=== PATIENT | female | born 1960 | race Caucasian/White ===

== ENCOUNTER 2017-05-11 11:29 | Emergency (ER) | payer SELFPAY ==
[2017-05-11] MEDS ORDERED: NAPROXEN 250 MG TABLET PO ONE (11:47)
--- NOTE | 2017-05-11 11:48 | ER Document Report ---
ED Medical Screen (RME) - General Chief Complaint: Knee Pain Stated Complaint: FELL IN SHOWER Time Seen by Provider: 05/11/17 11:46 Mode of Arrival: Wheelchair Information source: Patient TRAVEL OUTSIDE OF THE U.S. IN LAST 30 DAYS: No - HPI Patient complains to provider of: fall Onset: This morning - pt. fell in the shower earlier this am -- c/o bilateral knee and L shoulder pain - Related Data Allergies/Adverse Reactions: lisinopril Adverse Reaction (Verified 05/11/17 11:34) Past Medical History - Social History Chew tobacco use (# tins/day): No Frequency of alcohol use: None Drug Abuse: None - Past Medical History Cardiac Medical History: Reports: Hx Congestive Heart Failure, Hx Hypertension Endocrine Medical History: Reports: Hx Diabetes Mellitus Type 2 Renal/ Medical History: Denies: Hx Peritoneal Dialysis Past Surgical History: Reports: Hx Cardiac Surgery, Hx Section, Hx Cholecystectomy, Hx Orthopedic Surgery Physical Exam - Vital signs Vitals: Temp Pulse Resp BP Pulse Ox 98.5 F 104 H 18 162/85 H 96 05/11/17 11:31 05/11/17 11:31 05/11/17 11:31 05/11/17 11:31 05/11/17 11:31 Course - Vital Signs Vital signs: Temp Pulse Resp BP Pulse Ox 98.5 F 104 H 18 162/85 H 96 05/11/17 11:31 05/11/17 11:31 05/11/17 11:31 05/11/17 11:31 05/11/17 11:31
--- NOTE | 2017-05-11 12:37 | ER Document Report ---
ED Fall - General Chief Complaint: Knee Pain Stated Complaint: FELL IN SHOWER Time Seen by Provider: 05/11/17 11:46 Mode of Arrival: Wheelchair Information source: Patient Notes: 56-year-old female presents to ED for complaint and bilateral knees chronic that she has been being treated in [place] for Percocet for. She states she fell this morning in the shower and now has increased pain in both knees and in her left shoulder. She states she has moved to [place] now but has [place] Medicaid. 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 TRAVEL OUTSIDE OF THE U.S. IN LAST 30 DAYS: No - HPI Occurred: This morning Where: Home, Indoors Context: Tripped Associated symptoms: None Location of injury/pain: Knee - Bilateral knees which is chronic, Shoulder Quality of pain: Burning Severity: Severe Pain Level: 5 - Related data Allergies/Adverse Reactions: lisinopril Adverse Reaction (Verified 05/11/17 11:34) Past Medical History - General Information source: Patient - Social History Smoking Status: Current Every Day Smoker Cigarette use (# per day): Yes - 3 cigarettes a day Chew tobacco use (# tins/day): No Smoking Education Provided: Yes - Less than 2 minutes Frequency of alcohol use: None Drug Abuse: None Lives with: Family - Lives with her grown son who is a marine Family History: Other - She was not raised with her biological family and does not know anything about them. Patient has suicidal ideation: No Patient has homicidal ideation: No - Past Medical History Cardiac Medical History: Reports: Hx Congestive Heart Failure, Hx Hypertension Pulmonary Medical History: Reports: Hx Asthma EENT Medical History: Reports: None Neurological Medical History: Reports: None Endocrine Medical History: Reports: Hx Diabetes Mellitus Type 2 Renal/ Medical History: Reports: None Malignancy Medical History: Reports: None GI Medical History: Reports: None Musculoskeltal Medical History: Reports Hx Arthritis, Reports Hx Musculoskeletal Deformity, Reports Hx Musculoskeletal Trauma Skin Medical History: Reports None Psychiatric Medical History: Reports: None Traumatic Medical History: Reports: Hx Fractures Infectious Medical History: Reports: None Past Surgical History: Reports: Hx Section, Hx Cholecystectomy, Hx Orthopedic Surgery Review of Systems - Review of Systems Constitutional: No symptoms reported EENT: No symptoms reported Cardiovascular: No symptoms reported Respiratory: No symptoms reported Gastrointestinal: No symptoms reported Genitourinary: No symptoms reported Female Genitourinary: No symptoms reported Musculoskeletal: Joint pain - Bilateral knees and left shoulder Skin: No symptoms reported Hematologic/Lymphatic: No symptoms reported Neurological/Psychological: No symptoms reported -: Yes All other systems reviewed and negative Physical Exam - Vital signs Vitals: Temp Pulse Resp BP Pulse Ox 98.5 F 104 H 18 162/85 H 96 05/11/17 11:31 05/11/17 11:31 05/11/17 11:31 05/11/17 11:31 05/11/17 11:31 Interpretation: Normal - General General appearance: Appears well, Alert - HEENT Head: Normocephalic, Atraumatic Eyes: Normal Pupils: PERRL - Respiratory Respiratory status: No respiratory distress Chest status: Nontender Breath sounds: Normal Chest palpation: Normal - Cardiovascular Rhythm: Regular Heart sounds: Normal auscultation Murmur: No - Abdominal Inspection: Normal Distension: No distension Bowel sounds: Normal Tenderness: Nontender Organomegaly: No organomegaly - Back Back: Normal, Nontender - Extremities General upper extremity: Normal inspection, Normal color, Normal temperature General lower extremity: Normal inspection, Normal color, Normal ROM, Normal temperature. No: Aby's sign Shoulder: Tender, Limited ROM - Due to pain. No: Abrasion, Deformity, Dislocation, Ecchymosis, Instability, Laceration Knee: Tender, Pain with ROM, Patellar tendon intact - Neurological Neuro grossly intact: Yes Cognition: Normal Orientation: AAOx4 Ioana Coma Scale Eye Opening: Spontaneous Ioana Coma Scale Verbal: Oriented [place] Coma Scale Motor: Obeys Commands [place] Coma Scale Total: 15 Speech: Normal Motor strength normal: LUE, RUE, LLE, RLE Sensory: Normal - Psychological Associated symptoms: Normal affect, Normal mood - Skin Skin Temperature: Warm Skin Moisture: Dry Skin Color: Normal Course - Re-evaluation Re-evalutation: 05/11/17 14:23 Discussed x-rays with patient. Also discussed the hospital policy on chronic pain. Patient states she will be getting her a physician within a week. Patient was treated with a sling for her shoulder naproxen for her pain and discharged home with a prescription for 5 Percocet 11/15/2024 and told that she needs to get a primary doctor for any other pain medication. Patient was also instructed she needs to follow-up for her elevated blood pressure and be sure she is taken her medications as prescribed. - Vital Signs Vital signs: Temp Pulse Resp BP Pulse Ox 98.3 F 96 18 151/106 H 98 05/11/17 13:26 05/11/17 13:26 05/11/17 13:29 05/11/17 13:26 05/11/17 13:26 - Diagnostic Test Radiology reviewed: Image reviewed, Reports reviewed Discharge - Discharge Clinical Impression: Chronic pain of both knees Fall Qualifiers: Encounter type: initial encounter Qualified Code(s): W19.XXXA - Unspecified fall, initial encounter Left shoulder pain Qualifiers: Chronicity: acute Qualified Code(s): M25.512 - Pain in left shoulder Bilateral knee pain Qualifiers: Chronicity: chronic Qualified Code(s): M25.561 - Pain in right knee Condition: Stable Disposition: HOME, SELF-CARE Instructions: Family Physicians / Practices, Knee Exercise Program ([facility]), Exercise Program for the Shoulder ([facility]) Additional Instructions: CONTUSION: Your injury has resulted in a contusion -- a crushing of the deep tissues. No injury to important structures was detected during the physician's exam. Contusions vary in the amount of pain they cause, and in the length of time required for healing. Typically, the area will become bruised, and will remain painful to touch for two or three weeks. However, most patients are back to working and playing within a few days. After the initial period of rest and cold-packs, your symptoms (together with the doctor's recommendations) will determine how rapidly you can get back to full activity. Usually this means "do what feels okay, but don't do things that hurt." If re-examination was recommended, it's important to follow up as instructed. Call the doctor or return any time if pain increases, if swelling becomes severe, if you develop numbness or weakness in an injured extremity, or if any other alarming symptoms occur. Shoulder Injury You have injured your shoulder. This usually results from stretching or tearing of the tendons during trauma. Time and protection are required in order to heal properly. Many injuries are quite disabling, and should be taken seriously. Initial treatment includes cold packs and a sling to rest the shoulder. The physician has assessed the seriousness of your injury, and has outlined a treatment plan. Understand that this treatment may change, depending on how you progress. If a re-examination was recommended, it is important that you follow up as instructed. Some shoulder injuries (such as partial tear of the rotator cuff) are only suspected after you've failed to improve. Call us if there's severe pain, numbness, or loss of function. Chronic Pain Control Stress, inactivity, and depression make pain more severe regardless of the cause of the pain. Stress and poor physical condition can cause pain such as headaches and backache. Relaxation: Rest in a quiet place with your eyes closed for 20 minutes twice daily. Concentrate on a pleasant image, or simply "feel" your breathing. Clear your mind. Stress management: Deal with your "stressors." Either take action, or eliminate the stressor from your life. Don't let things hang over you. Accept those things you can't change. Nutrition: Eat small, balanced meals -- don't skip, don't overeat. Meals should be high-carbohydrate, low-sugar, low-fat. Exercise: Exercise helps painful conditions and eases stress. Get 30 minutes of moderate exercise, five days a week. Do an activity that does not flare your pain. Precautions: Pain which continues to disrupt daily activities, or which changes in nature, requires a medical evaluation. Pain Clinic referral is available. We do not manage chronic pain in the Emergency Department. We will try to appropriately help you through an acute flare of your chronic painful condition , but for on-going chronic pain that does not improve, you will need to see your private doctor or sign painter helper. We do not provide repeated medication management of chronic painful conditions. If you wish, we can provide the name of local pain management physicians. USE OF TYLENOL (ACETAMINOPHEN): Acetaminophen may be taken for pain relief or fever control. It's much safer than aspirin, offering a wider range of "safe" dosages. It is safe during . Some brand names are Tylenol, Panadol, Datril, Anacin 3, Tempra, and Liquiprin. Acetaminophen can be repeated every four hours. The following are maximum recommended dosages: WEIGHT Dose Drops Elixir Chewable( 80mg) (LBS.) drprs=droppers tsp=teaspoon 6 40 mg 0.4 ml (1/2) 6-11 80 mg 0.8 ml (full) tsp 1 tab 12-16 120 mg 1 1/2 drprs 3/4 tsp 1 1/2 tabs 17-23 160 mg 2 drprs 1 tsp 2 tabs 24-30 240 mg 3 drprs 1 1/2 tsp 3 tabs 30-35 320 mg 2 tsp 4 tabs 36-41 360 mg 2 1/4 tsp 4 1/2 tabs 42-47 400 mg 2 1/2 tsp 5 tabs 48-53 480 mg 3 tsp 6 tabs 54-59 520 mg 3 1/4 tsp 6 1/2 tabs 60-64 560 mg 3 1/2 tsp 7 tabs 65-70 600 mg 3 3/4 tsp 7 1/2 tabs 71-76 640 mg 4 tsp 8 tabs 77-82 720 mg 4 1/2 tsp 9 tabs 83-88 800 mg 5 tsp 10 tabs >89 pounds or adults 650 mg to 900 mg Acetaminophen can be repeated every four hours. Maximum dose not to exceed 4000 mg a day. These maximum recommended dosages are slightly higher than the dosages written on the product container, but these dosages are very safe and below the toxic dosage for acetaminophen. ICE PACKS: Apply ice packs frequently against the painful area. Many different schedules are recommended, such as "20 minutes on, 20 minutes off" or "one hour ice, two hours rest." If you need to work, you may need to go longer between ice treatments. You should plan to have the area ice packed AT LEAST one fourth of the time. The ice should be applied over the wrap, tape, or splint, or over a layer of cloth -- not directly against the skin. Some ice bags have a built-in cloth and can be put directly on the skin. WARM PACKS: After approximately two days, apply gentle heat (such as a heating pad or hot water bottle) for about 20 to 30 minutes about every two hours -- at least four times daily. Warmth and elevation will help you make a more rapid recovery , and will ease the pain considerably. Do not use HOT heat, and never apply heat for longer than 30 minutes. The continuous heat can invisibly damage skin and muscles -- even when no burn is seen on the surface. Damaged muscles can make you MORE sore. ORAL NARCOTIC MEDICATION: You have been given a prescription for pain control. This medication is a narcotic. It's best taken with food, as nausea can result if taken on an empty stomach. Don't operate machinery or drive within six hours of taking this medication. Do not combine this medicine with alcohol, or with any medication which can cause sedation (such as cold tablets or sleeping pills) unless you get permission from the physician. Narcotics tend to cause constipation. If possible, drink plenty of fluids and eat a diet high in fiber and fruits. FOLLOW-UP CARE: If you have been referred to a physician for follow-up care, call the physician s office for an appointment as you were instructed or within the next two days. If you experience worsening or a significant change in your symptoms, notify the physician immediately or return to the Emergency Department at any time for re-evaluation. Prescriptions: Naproxen 500 mg PO BIDP PRN #10 tablet PRN Reason: Oxycodone HCl/Acetaminophen [Percocet 5-325 mg Tablet] 1 tab PO DAILYP PRN #5 tablet PRN Reason: Forms: Elevated Blood Pressure, Smoking Cessation Education Referrals: KAMALJIT IBARRA MD [ACTIVE STAFF] - Follow up as needed
--- NOTE | 2017-05-11 12:40 | RADIOLOGY REPORT (SQ) ---
EXAM DESCRIPTION: KNEE BILATERAL 1-2 VIEWS COMPLETED DATE/TIME: 05/11/2017 12:25 pm REASON FOR STUDY: fall COMPARISON: None. NUMBER OF VIEWS: Two views. TECHNIQUE: AP and lateral radiographic images acquired of the right and left knee. LIMITATIONS: None. FINDINGS: MINERALIZATION: Normal. BONES: No acute fracture or dislocation. Joint space narrowing with osteophytes. No worrisome bone lesions. JOINT: No effusion. SOFT TISSUES: No soft tissue swelling. No radio-opaque foreign body. OTHER: No other significant finding. IMPRESSION: DEGENERATIVE JOINT DISEASE IN BOTH KNEES. NO ACUTE FINDINGS. TECHNICAL DOCUMENTATION: JOB ID: [id number] [employer]- All Rights Reserved
--- NOTE | 2017-05-11 12:41 | RADIOLOGY REPORT (SQ) ---
EXAM DESCRIPTION: SHOULDER LEFT 2 OR MORE VIEWS COMPLETED DATE/TIME: 05/11/2017 12:25 pm REASON FOR STUDY: fall COMPARISON: None. NUMBER OF VIEWS: Three views. TECHNIQUE: Internal rotation, external rotation, and Y view images acquired of the left shoulder. LIMITATIONS: None. FINDINGS: MINERALIZATION: Normal. BONES: No acute fracture or dislocation. No worrisome bone lesions. JOINTS: No dislocation. VISUALIZED LUNGS AND RIBS: No pneumothorax. No rib fracture. SOFT TISSUES: No radiopaque foreign body. OTHER: No other significant finding. IMPRESSION: NEGATIVE STUDY OF THE LEFT SHOULDER. NO RADIOGRAPHIC EVIDENCE OF ACUTE INJURY. TECHNICAL DOCUMENTATION: JOB ID: [id number] [employer]- All Rights Reserved
[2017-05-11 13:29] VITALS: BP 151/106
== END 2017-05-11 13:39 | disposition home or self-care (01) ==
LOC: ER 11:29
DX: G89.29 Other chronic pain (principal); M25.561 Pain in right knee; M25.562 Pain in left knee; M25.512 Pain in left shoulder; W18.2XXA Fall in (into) shower or empty bathtub, initial encounter; Y92.002 Bathroom of unspecified non-institutional (private) residence as the place of occurrence of the external cause; Z79.891 Long term (current) use of opiate analgesic; I10 Essential (primary) hypertension; E11.9 Type 2 diabetes mellitus without complications; J45.909 Unspecified asthma, uncomplicated; F17.210 Nicotine dependence, cigarettes, uncomplicated; Z71.6 Tobacco abuse counseling
CPT/HCPCS: 99283

== ENCOUNTER 2018-10-27 12:22 | Emergency (ER) | payer SELFPAY ==
[2018-10-27 12:28] VITALS: BP 158/102
--- NOTE | 2018-10-27 12:50 | ER Document Report ---
HPI - HPI Time Seen by Provider: 10/27/18 12:39 Pain Level: 5 Notes: Patient is a 57-year-old female who presents to the emergency department with chronic pelvic pain. Patient reports she has chronic pelvic inflammatory disease. States she is seen by Dr. Barrett and usually takes oxycodone when she has a flareup. Patient reports that she has not had a flareup in over 6 months. Patient denies any nausea, vomiting, diarrhea, fever or abdominal pain. She reports all pain is in the pelvic area. Denies any abnormal discharge. - DERM Skin Color: Normal Past Medical History - General Information source: Patient - Social History Smoking Status: Current Every Day Smoker Family History: Other - She was not raised with her biological family and does not know anything about them. Patient has suicidal ideation: No Patient has homicidal ideation: No - Past Medical History Cardiac Medical History: Reports: Hx Congestive Heart Failure, Hx Hypertension Pulmonary Medical History: Reports: Hx Asthma Endocrine Medical History: Reports: Hx Diabetes Mellitus Type 2 Renal/ Medical History: Denies: Hx Peritoneal Dialysis Musculoskeletal Medical History: Reports Hx Arthritis, Reports Hx Musculoskeletal Deformity, Reports Hx Musculoskeletal Trauma Traumatic Medical History: Reports: Hx Fractures Past Surgical History: Reports: Hx Cardiac Surgery, Hx Section, Hx Cholecystectomy, Hx Orthopedic Surgery Vertical Provider Document - CONSTITUTIONAL Notes: PHYSICAL EXAMINATION: GENERAL: Well-appearing, well-nourished and in no acute distress. HEAD: Atraumatic, normocephalic. EYES: Pupils equal round and reactive to light, extraocular movements intact, conjunctiva are normal. ENT: Nares patent, oropharynx clear without exudates. Moist mucous membranes. NECK: Normal range of motion, supple without lymphadenopathy LUNGS: Breath sounds clear to auscultation bilaterally and equal. No wheezes rales or rhonchi. HEART: Regular rate and rhythm without murmurs ABDOMEN: Soft, nontender, nondistended abdomen. No guarding, no rebound. No masses appreciated. Female : deferred Musculoskeletal: Normal range of motion, no pitting or edema. No cyanosis. NEUROLOGICAL: Cranial nerves grossly intact. Normal speech, normal gait. Normal sensory, motor exams PSYCH: Normal mood, normal affect. SKIN: Warm, Dry, normal turgor, no rashes or lesions noted. - INFECTION CONTROL TRAVEL OUTSIDE OF THE [place].S. IN LAST 30 DAYS: No Course - Re-evaluation Re-evalutation: Patient appears to be in moderate distress. Her abdomen is soft and nontender. Patient reports chronic PID since her early 20s. She states that every 6-12 months it flares up for a few days and she takes narcotics for this. Patient was looked up in the [place] [employer] aware program. She has had 2 very short prescriptions for narcotics in the last 2 years in [place] and surrounding [facility]. We will send her home with prescription. Encouraged her to follow-up with her PCP. - Vital Signs Vital signs: Temp Pulse Resp BP Pulse Ox 98.5 F 116 H 20 158/102 H 96 10/27/18 12:27 10/27/18 12:27 10/27/18 12:27 10/27/18 12:27 10/27/18 12:27 Discharge - Discharge Clinical Impression: Chronic pelvic pain in female Condition: Stable Disposition: HOME, SELF-CARE Additional Instructions: You were seen today for pelvic pain. Please take medication as prescribed. Please follow-up with Dr. Barrett as discussed. Prescriptions: Oxycodone HCl [Oxy-Ir 5 mg Tablet] 5 mg PO Q6H PRN #12 tab PRN Reason: Referrals: BOO BARRETT MD [Primary Care Provider] - Follow up as needed
== END 2018-10-27 12:52 | disposition home or self-care (01) ==
LOC: ER 12:22
DX: G89.29 Other chronic pain (principal); R10.2 Pelvic and perineal pain; N73.1 Chronic parametritis and pelvic cellulitis; E11.9 Type 2 diabetes mellitus without complications; J45.909 Unspecified asthma, uncomplicated; F17.200 Nicotine dependence, unspecified, uncomplicated
CPT/HCPCS: 99283

== ENCOUNTER 2018-11-13 21:16 | Emergency (ER) | payer SELFPAY ==
[2018-11-13] MEDS ORDERED: IPRATROPIUM/ALBUTEROL 0.5-2.5 MG/3 ML AMPUL NEB ONE (23:02)
--- NOTE | 2018-11-13 23:04 | ER Document Report ---
ED Medical Screen (RME) - General Chief Complaint: Shortness Of Breath Stated Complaint: SHORTNESS OF BREATH Time Seen by Provider: 11/13/18 22:54 Primary Care Provider: BOO BARRETT MD [Primary Care Provider] - Follow up as needed Notes: Patient is a 58-year-old female who presents emergency department with shortness of breath. She states that she uses nebulizer treatments every day and this morning she woke up and her nebulizer broke. She states that she could possibly have COPD, but has never been fully diagnosed. She also has CHF. She states that she did have some chest pain, but states that it might of been due to anxiety due to her nebulizer being broken. She does not have any chest pain at this time. She does admit to some wheezing. Exam: Expiratory wheezes noted throughout all lung lawrence. I have greeted and performed a rapid initial assessment of this patient. A comprehensive ED assessment and evaluation of the patient, analysis of test results and completion of medical decision making process will be conducted by an additional ED providers. TRAVEL OUTSIDE OF THE [place] IN LAST 30 DAYS: No - Related Data Allergies/Adverse Reactions: lisinopril Adverse Reaction (Verified 05/11/17 11:34) Past Medical History - Past Medical History Cardiac Medical History: Reports: Hx Congestive Heart Failure, Hx Hypertension Pulmonary Medical History: Reports: Hx Asthma Endocrine Medical History: Reports: Hx Diabetes Mellitus Type 2 Renal/ Medical History: Denies: Hx Peritoneal Dialysis Musculoskeltal Medical History: Reports Hx Arthritis, Reports Hx Musculoskeletal Deformity, Reports Hx Musculoskeletal Trauma Traumatic Medical History: Reports: Hx Fractures Past Surgical History: Reports: Hx Cardiac Surgery, Hx Section, Hx Cholecystectomy, Hx Orthopedic Surgery Physical Exam - Vital signs Vitals: Temp Pulse Resp BP Pulse Ox 98.1 F 77 28 H 152/107 H 95 11/13/18 21:22 11/13/18 21:22 11/13/18 21:22 11/13/18 21:22 11/13/18 21:22 Course - Vital Signs Vital signs: Temp Pulse Resp BP Pulse Ox 98.1 F 77 28 H 152/107 H 95 11/13/18 21:22 11/13/18 21:22 11/13/18 21:22 11/13/18 21:22 11/13/18 21:22 Doctor's Discharge - Discharge Referrals: OJEBUOBOH,IBIKUNLE, MD [Primary Care Provider] - Follow up as needed
--- NOTE | 2018-11-13 23:38 | RADIOLOGY REPORT (SQ) ---
EXAM DESCRIPTION: XR CHEST 1 VIEW COMPLETED DATE/TME: 11/13/2018 23:03 CLINICAL HISTORY: 58 years Female shortness of breath COMPARISON: None. FINDINGS: Heart appears at the upper limits. Small amount of atelectasis adjacent to the left heart border. There is increased density in the right lung base that could reflect developing infiltrate. No pneumothorax. No evidence of pleural fluid. Mild degenerative changes in the spine. IMPRESSION: Some increased density in the right lung base that could reflect areas of developing infiltrate or atelectasis. Linear atelectasis adjacent to the left heart border
[2018-11-14 00:08] LABS: HEMOGLOBIN 15.1 g/dL (12.0-15.5); MEAN CORPUSCULAR HEMOGLOBIN 30.9 pg (27.0-33.4); MEAN CORPUSCULAR HGB CONC 33.5 g/dL (32.0-36.0); MEAN CORPUSCULAR VOLUME 92 fl (80-97); PLATELET COUNT 165 10^3/uL (150-450); RED BLOOD COUNT 4.88 10^6/uL (3.72-5.28); RED CELL DISTRIBUTION WIDTH 13.5 % (11.5-14.0)
[2018-11-14 00:23] LABS: ALANINE AMINOTRANSFERASE 37 U/L (9-52); ALBUMIN 3.8 g/dL (3.5-5.0); ALKALINE PHOSPHATASE 193 U/L (38-126); ANION GAP 9 (5-19); ASPARTATE AMINO TRANSFERASE 58 U/L (14-36); BILIRUBIN,DIRECT 0.3 mg/dL (0.0-0.4); BILIRUBIN,TOTAL 0.7 mg/dL (0.2-1.3); BLOOD UREA NITROGEN 8 mg/dL (7-20); CALCIUM 9.4 mg/dL (8.4-10.2); CARBON DIOXIDE 25 mmol/L (22-30); CHLORIDE 103 mmol/L (98-107); GLUCOSE 209 mg/dL (75-110); POTASSIUM 4.4 mmol/L (3.6-5.0); SODIUM 137.4 mmol/L (137-145); TOTAL PROTEIN 7.4 g/dL (6.3-8.2)
[2018-11-14 00:26] LABS: ABSOLUTE LYMPHOCYTES# (MANUAL) 2.8 10^3/uL (0.5-4.7); ABSOLUTE MONOCYTES # (MANUAL) 0.9 10^3/uL (0.1-1.4); ABSOLUTE NEUTROPHILS# (MANUAL) 6.1 10^3/uL (1.7-8.2); BASOPHILS % (MANUAL) 0 % (0-2); EOSINOPHILS % (MANUAL) 2 % (0-6); LYMPHOCYTES % (MANUAL) 24 % (13-45); MONOCYTES % (MANUAL) 9 % (3-13); SEGMENTED NEUTROPHILS % (MAN) 61 % (42-78); TOTAL CELLS COUNTED 100
[2018-11-14 00:27] LABS: PLATELET COMMENT ADEQUATE; RBC MORPHOLOGY COMMENT MN
--- NOTE | 2018-11-14 01:44 | ER Document Report ---
ED General - General Chief Complaint: Shortness Of Breath Stated Complaint: SHORTNESS OF BREATH Time Seen by Provider: 11/13/18 22:54 Primary Care Provider: BOO BARRETT MD [Primary Care Provider] - Follow up in 3-5 days Notes: Patient is a 58-year-old female who presents emergency department with shortness of breath. She states that she uses nebulizer treatments every day and this morning she woke up and her nebulizer broke. She states that she could possibly have COPD, but has never been fully diagnosed. She also has CHF. She states that she did have some chest pain, but states that it might of been due to anxiety due to her nebulizer being broken. She does not have any chest pain at this time. She does admit to some wheezing. TRAVEL OUTSIDE OF THE [place] IN LAST 30 DAYS: No - Related Data Allergies/Adverse Reactions: lisinopril Adverse Reaction (Verified 05/11/17 11:34) Past Medical History - Social History Smoking Status: Current Every Day Smoker Family History: Other - She was not raised with her biological family and does not know anything about them. - Past Medical History Cardiac Medical History: Reports: Hx Congestive Heart Failure, Hx Hypertension Pulmonary Medical History: Reports: Hx Asthma Endocrine Medical History: Reports: Hx Diabetes Mellitus Type 2 Renal/ Medical History: Denies: Hx Peritoneal Dialysis Musculoskeletal Medical History: Reports Hx Arthritis, Reports Hx Musculoskeletal Deformity, Reports Hx Musculoskeletal Trauma Traumatic Medical History: Reports: Hx Fractures Past Surgical History: Reports: Hx Cardiac Surgery, Hx Section, Hx Cholecystectomy, Hx Orthopedic Surgery Review of Systems - Review of Systems Notes: REVIEW OF SYSTEMS: CONSTITUTIONAL : Denies recent illness. Denies recent unintentional weight loss. Denies fever, chills, or sweats. EENT: Denies eye, ear, throat, or mouth pain, discharge, or symptoms. Denies nasal or sinus congestion. CARDIOVASCULAR: Denies chest pain. RESPIRATORY: See HPI GASTROINTESTINAL: Denies nausea, vomiting, and diarrhea. Denies abdominal pain. Denies constipation. GENITOURINARY: Denies difficulty urinating, burning, blood in urine, urgency or frequency. MUSCULOSKELETAL: Denies neck and back pain. Denies joint pain or swelling. SKIN: Denies rash, itchiness, or lesions HEMATOLOGIC : Denies easy bruising or bleeding. LYMPHATIC: Denies swollen, painful, enlarged glands. NEUROLOGICAL: Denies no numbness or tingling denies weakness. Denies headache. Denies altered mental status. Denies alteration in speech. PSYCHIATRIC: Denies stress, anxiety, alteration in sleep patterns, or depression. All other systems reviewed and negative. Physical Exam - Vital signs Vitals: Temp Pulse Resp BP Pulse Ox 98.1 F 77 28 H 152/107 H 95 11/13/18 21:22 11/13/18 21:22 11/13/18 21:22 11/13/18 21:22 11/13/18 21:22 - Notes Notes: PHYSICAL EXAMINATION: GENERAL: Appears well, healthy, well-nourished, no acute distress. HEAD: Normocephalic, atraumatic. EYES: PERRL, conjunctiva normal, all extraocular movements intact, sclera n onicteric ENT: Moist mucous membranes. NECK: Supple, no noticeable swelling, redness, rash. Normal range of motion. LUNGS: Expiratory wheezes noted bilaterally to lower lobes CARDIOVASCULAR: S1-S2, regular rate, regular rhythm. Radial pulses 2+, normal. ABDOMEN: Normoactive bowel sounds. Soft, nontender, no guarding, no rebound tenderness, and no masses palpated. EXTREMITIES: Normal strength and range of motion, no pitting or edema. No cyanosis. NEUROLOGICAL: Moves all extremities upon command. Strength 5/5 in all extremities. PSYCH: Normal mood, normal affect. SKIN: Warm, dry. No rash, lesions, ulcerations noted. Normal skin turgor. Course - Re-evaluation Re-evalutation: 11/14/18 01:00 Reassess the patient and her breath sounds are better. She states that she does feel much better after receiving her nebulizer treatment. Patient's chest x-ray shows a possible infiltrate on the read, but when I e valuated the x-ray, I did not see any infiltrate. I also had Dr. Garcia reviewed the x-ray, and he agrees with me that there is no pneumonia noted. I do not suspect patient has pneumonia, as she has not had any fever. Exam is consistent with a COPD exacerbation. I will send her home with a rescue inhaler. She is in agreement with this plan. Verbal discharge instructions were given to the patient. They verbalized understanding. They are stable for discharge. - Vital Signs Vital signs: Temp Pulse Resp BP Pulse Ox 98.6 F 81 18 137/79 H 95 11/14/18 01:21 11/14/18 01:21 11/14/18 01:21 11/14/18 01:21 11/13/18 21:22 - Laboratory Result Diagrams: 11/13/18 23:53 11/13/18 23:53 Laboratory results interpreted by me: 11/13/18 23:53 Glucose 209 H AST 58 H Alkaline Phosphatase 193 H Discharge - Discharge Clinical Impression: Shortness of breath Condition: Stable Disposition: HOME, SELF-CARE Additional Instructions: You were seen today in the emergency department for shortness of breath. You were given an albuterol inhaler. Use your inhaler every 4-6 hours as needed for shortness of breath or wheezing. Please follow-up with your primary care provider the next 3 to 5 days in regards to this visit. If you develop fever greater than 100.4 F, have difficulty breathing, shortness of breath, or have any symptoms that are worrisome to you, [facility] Referrals: BOO BARRETT MD [Primary Care Provider] - Follow up in 3-5 days
[2018-11-14] MEDS ORDERED: ALBUTEROL SULFATE HFA (90 MCG/PUFF) 8 GM MDI (1 MDI/ER DISP) IH PRN (01:45)
[2018-11-14 02:03] VITALS: BP 137/79
== END 2018-11-14 02:03 | disposition home or self-care (01) ==
LOC: ER 21:16
DX: R06.02 Shortness of breath (principal); R07.9 Chest pain, unspecified; F41.9 Anxiety disorder, unspecified; F17.200 Nicotine dependence, unspecified, uncomplicated; J44.9 Chronic obstructive pulmonary disease, unspecified; I11.0 Hypertensive heart disease with heart failure; I50.9 Heart failure, unspecified; J45.909 Unspecified asthma, uncomplicated; E11.9 Type 2 diabetes mellitus without complications
CPT/HCPCS: 94640; 99285; 36415; 85025; 80053; 71045; J3490; J7620

== ENCOUNTER 2019-06-23 09:04 | Emergency (ER) | payer SELFPAY ==
[2019-06-23] MEDS ORDERED: ONDANSETRON HCL INJ/PF 4 MG/2 ML SDV IV ONE (09:38)
--- NOTE | 2019-06-23 09:40 | ER Document Report ---
ED Medical Screen (RME) - General Chief Complaint: Abdominal Pain Stated Complaint: LOW ABDOMINAL PAIN,DIARRHEA Time Seen by Provider: 06/23/19 09:33 Primary Care Provider: BOO BARRETT MD [Primary Care Provider] - Follow up as needed Mode of Arrival: Wheelchair Information source: Patient Notes: Patient presents complaining of nausea vomiting diarrhea that started 2 days ago. Patient also reports lower pelvic pain similar to when she has had PID in the past. Patient reports likely food poisoning as her son developed vomiting and diarrhea the same day that she did. Patient reports chills at home. No vaginal bleeding or discharge. hx: Hypertension, CHF, COPD, asthma I have greeted and performed a rapid initial assessment of this patient. A comprehensive ED assessment and evaluation of the patient, analysis of test results and completion of the medical decision making process will be conducted by additional ED providers. TRAVEL OUTSIDE OF THE [place] IN LAST 30 DAYS: No - Related Data Allergies/Adverse Reactions: lisinopril Adverse Reaction (Verified 06/23/19 09:31) Home Medications: Metoprolol. ASA. "inhaler" Past Medical History - Social History Chew tobacco use (# tins/day): No Frequency of alcohol use: None Drug Abuse: None - Past Medical History Cardiac Medical History: Reports: Hx Congestive Heart Failure, Hx Hypertension Pulmonary Medical History: Reports: Hx Asthma Endocrine Medical History: Reports: Hx Diabetes Mellitus Type 2 Renal/ Medical History: Denies: Hx Peritoneal Dialysis Musculoskeltal Medical History: Reports Hx Arthritis, Reports Hx Musculoskeletal Deformity, Reports Hx Musculoskeletal Trauma Traumatic Medical History: Reports: Hx Fractures Past Surgical History: Reports: Hx Cardiac Surgery, Hx Section, Hx Cholecystectomy, Hx Orthopedic Surgery Physical Exam - Vital signs Vitals: Temp Pulse Resp BP Pulse Ox 98.1 F 77 18 144/83 H 96 06/23/19 09:20 06/23/19 09:20 06/23/19 09:20 06/23/19 09:20 06/23/19 09:20 - Abdominal Inspection: Obese Tenderness: Tender - Lower pelvic Course - Vital Signs Vital signs: Temp Pulse Resp BP Pulse Ox 98.1 F 77 18 144/83 H 96 06/23/19 09:31 12 09:31 06/23/19 09:31 06/23/19 09:31 06/23/19 09:31 Doctor's Discharge - Discharge Referrals: BOO BARRETT MD [Primary Care Provider] - Follow up as needed
[2019-06-23 10:08] LABS: APPEARANCE,URINE CLEAR; BILIRUBIN,URINE NEGATIVE (NEGATIVE); COLOR,URINE AMBER; GLUCOSE, URINE >=500 mg/dL (NEGATIVE); KETONES,URINE NEGATIVE (NEGATIVE); LEUKOCYTE ESTERASE,URINE NEGATIVE (NEGATIVE); NITRITE,URINE NEGATIVE (NEGATIVE); PROTEIN,URINE NEGATIVE (NEGATIVE); URINE SPECIFIC GRAVITY 1.033
[2019-06-23 10:13] LABS: ABSOLUTE BASOPHILS # (AUTO) 0.2 10^3/uL (0.0-0.2); ABSOLUTE EOSINOPHILS # (AUTO) 0.3 10^3/uL (0.0-0.6); ABSOLUTE LYMPHOCYTES (AUTO) 2.7 10^3/uL (0.5-4.7); ABSOLUTE MONOCYTES (AUTO) 1.2 10^3/uL (0.1-1.4); BASOPHILS % (AUTO) 1.3 % (0-2); EOSINOPHILS % (AUTO) 2.3 % (0-6); HEMATOCRIT 50.6 % (36.0-47.0); HEMOGLOBIN 17.2 g/dL (12.0-15.5); MEAN CORPUSCULAR HEMOGLOBIN 30.9 pg (27.0-33.4); MEAN CORPUSCULAR HGB CONC 34.1 g/dL (32.0-36.0); MEAN CORPUSCULAR VOLUME 91 fl (80-97); MONOCYTES % (AUTO) 9.6 % (3-13); PLATELET COUNT 228 10^3/uL (150-450); RED BLOOD COUNT 5.58 10^6/uL (3.72-5.28); RED CELL DISTRIBUTION WIDTH 13.4 % (11.5-14.0); SEGMENTED NEUTROPHILS % (AUTO) 64.8 % (42-78); TOTAL CELLS COUNTED % (AUTO) 100 %; WHITE BLOOD COUNT 12.3 10^3/uL (4.0-10.5)
[2019-06-23 10:33] LABS: ALBUMIN 4.1 g/dL (3.5-5.0); ALKALINE PHOSPHATASE 172 U/L (38-126); ANION GAP 11 (5-19); ASPARTATE AMINO TRANSFERASE 70 U/L (14-36); BILIRUBIN,DIRECT 0.3 mg/dL (0.0-0.4); BILIRUBIN,TOTAL 1.4 mg/dL (0.2-1.3); BLOOD UREA NITROGEN 11 mg/dL (7-20); CALCIUM 9.3 mg/dL (8.4-10.2); CARBON DIOXIDE 24 mmol/L (22-30); CHLORIDE 105 mmol/L (98-107); GLUCOSE 317 mg/dL (75-110); POTASSIUM 3.8 mmol/L (3.6-5.0); TOTAL PROTEIN 7.9 g/dL (6.3-8.2)
--- NOTE | 2019-06-23 10:59 | ER Document Report ---
ED GI/ - General Chief Complaint: Abdominal Pain Stated Complaint: LOW ABDOMINAL PAIN,DIARRHEA Time Seen by Provider: 06/23/19 09:33 Primary Care Provider: BOO BARRETT MD [Primary Care Provider] - Follow up as needed Mode of Arrival: Wheelchair TRAVEL OUTSIDE OF THE [place] IN LAST 30 DAYS: No - Related Data Allergies/Adverse Reactions: lisinopril Adverse Reaction (Verified 06/23/19 09:31) Home Medications: Metoprolol. ASA. "inhaler" Past Medical History - General Information source: Patient - Social History Smoking Status: Current Every Day Smoker Chew tobacco use (# tins/day): No Frequency of alcohol use: None Drug Abuse: None Family History: Other - She was not raised with her biological family and does not know anything about them. Patient has suicidal ideation: No Patient has homicidal ideation: No - Past Medical History Cardiac Medical History: Reports: Hx Congestive Heart Failure, Hx Hypertension Pulmonary Medical History: Reports: Hx Asthma Endocrine Medical History: Reports: Hx Diabetes Mellitus Type 2 Renal/ Medical History: Denies: Hx Peritoneal Dialysis Musculoskeletal Medical History: Reports Hx Arthritis, Reports Hx Musculoskeletal Deformity, Reports Hx Musculoskeletal Trauma Traumatic Medical History: Reports: Hx Fractures Past Surgical History: Reports: Hx Cardiac Surgery, Hx Section, Hx Cholecystectomy, Hx Orthopedic Surgery Physical Exam - Vital signs Vitals: Temp Pulse Resp BP Pulse Ox 98.1 F 77 18 144/83 H 96 06/23/19 09:20 06/23/19 09:20 06/23/19 09:20 06/23/19 09:20 06/23/19 09:20 Course - Vital Signs Vital signs: Temp Pulse Resp BP Pulse Ox 98.1 F 77 18 144/83 H 96 06/23/19 09:31 06/23/19 09:31 06/23/19 09:31 06/23/19 09:31 06/23/19 09:31 - Laboratory Result Diagrams: 06/23/19 09:53 06/23/19 09:53 Laboratory results interpreted by me: 06/23/19 06/23/19 06/23/19 09:47 09:53 09:53 WBC 12.3 H RBC 5.58 H Hgb 17.2 H Hct 50.6 H Glucose 317 H Total Bilirubin 1.4 H AST 70 H Alkaline Phosphatase 172 H Urine Glucose (UA) >=500 H Urine Urobilinogen 4.0 H Discharge - Discharge Clinical Impression: Pelvic and perineal pain Condition: Fair Disposition: HOME, SELF-CARE Prescriptions: Metronidazole [Flagyl 500 mg Tablet] 500 mg PO Q6H 2 Days #4 tablet Oxycodone HCl/Acetaminophen [Percocet 5-325 mg Tablet] 1 - 2 tab PO Q4H PRN #7 tablet PRN Reason: Referrals: BOO BARRETT MD [Primary Care Provider] - Follow up as needed
[2019-06-23] MEDS ORDERED: NORMAL SALINE 500 ML IV ONE (12:12)
[2019-06-23] MEDS ORDERED: OXYCODONE-ACETAMINOPHEN 5-325 MG TABLET PO ONE (12:13)
--- NOTE | 2019-06-23 13:12 | ER Document Report ---
ED GI/ - General Chief Complaint: Abdominal Pain Stated Complaint: LOW ABDOMINAL PAIN,DIARRHEA Time Seen by Provider: 06/23/19 09:33 Primary Care Provider: BOO BARRETT MD [Primary Care Provider] - Follow up as needed Mode of Arrival: Ambulatory Information source: Patient TRAVEL OUTSIDE OF THE [place] IN LAST 30 DAYS: No - HPI Patient complains to provider of: Pelvic pain, Other - Left groin pain Onset: Yesterday Timing/Duration: Constant Quality of pain: Achy, Stabbing Severity at maximum: Severe Severity in ED: Severe Pain Level: 5 Location: Other - Left inguinal area Associated symptoms: Nausea Exacerbated by: Movement Similar symptoms previously: Yes - Patient reports that she gets recurrent PID and has a chronic pelvic pain - Related Data Allergies/Adverse Reactions: lisinopril Adverse Reaction (Verified 06/23/19 09:31) Home Medications: Metoprolol. ASA. "inhaler" Past Medical History - Social History Smoking Status: Current Every Day Smoker Chew tobacco use (# tins/day): No Frequency of alcohol use: None Drug Abuse: None Lives with: Family Family History: Other - She was not raised with her biological family and does not know anything about them. Patient has suicidal ideation: No Patient has homicidal ideation: No - Past Medical History Cardiac Medical History: Reports: Hx Congestive Heart Failure, Hx Hypertension Pulmonary Medical History: Reports: Hx Asthma Endocrine Medical History: Reports: Hx Diabetes Mellitus Type 2 Renal/ Medical History: Denies: Hx Peritoneal Dialysis Musculoskeletal Medical History: Reports Hx Arthritis, Reports Hx Musculoskeletal Deformity, Reports Hx Musculoskeletal Trauma Traumatic Medical History: Reports: Hx Fractures Infectious Medical History: Reports: Other - Recurrent pelvic inflammatory disease without infection. Past Surgical History: Reports: Hx Cardiac Surgery, Hx Section, Hx Cholecystectomy, Hx Orthopedic Surgery, Other - Denies any discharge. Patient has recurrent PID without evidence of infect Review of Systems - Review of Systems Constitutional: No symptoms reported EENT: No symptoms reported Cardiovascular: No symptoms reported Respiratory: No symptoms reported Gastrointestinal: No symptoms reported Genitourinary: No symptoms reported, Pain - Recurrent pain and is a chronic pain patient Female Genitourinary: No symptoms reported Musculoskeletal: No symptoms reported, Other - Pain in left groin region. Denies any trauma Skin: No symptoms reported Hematologic/Lymphatic: No symptoms reported Neurological/Psychological: No symptoms reported Physical Exam - Vital signs Vitals: Temp Pulse Resp BP Pulse Ox 98.1 F 77 18 144/83 H 96 06/23/19 09:20 06/23/19 09:20 06/23/19 09:20 06/23/19 09:20 06/23/19 09:20 - Abdominal Inspection: Normal Distension: No distension Bowel sounds: Normal Tenderness: Nontender Organomegaly: No organomegaly - Back Back: Nontender - Extremities General lower extremity: Normal inspection Hip: Normal - No decrease in range of motion of hip joint. No mass appreciated or hernia. - Neurological Neuro grossly intact: Yes Cognition: Normal Orientation: AAOx4 [place] Coma Scale Eye Opening: Spontaneous [place] Coma Scale Verbal: Oriented [place] Coma Scale Motor: Obeys Commands [place] Coma Scale Total: 15 Speech: Normal Motor strength normal: LUE, RUE, LLE, RLE Sensory: Normal Course - Vital Signs Vital signs: Temp Pulse Resp BP Pulse Ox 98.1 F 77 18 144/83 H 96 06/23/19 09:31 06/23/19 09:31 06/23/19 09:31 06/23/19 09:31 06/23/19 09:31 - Laboratory Result Diagrams: 06/23/19 09:53 06/23/19 09:53 Laboratory results interpreted by me: 06/23/19 06/23/19 06/23/19 09:47 09:53 09:53 WBC 12.3 H RBC 5.58 H Hgb 17.2 H Hct 50.6 H Glucose 317 H Total Bilirubin 1.4 H AST 70 H Alkaline Phosphatase 172 H Urine Glucose (UA) >=500 H Urine Urobilinogen 4.0 H 06/23/19 13:17 Pending chlamydia GC on the urinalysis at this time. It is noted to have a white blood cell count 12.3 without any signs of infection. Noted mild elevation and liver function test. Patient will be advised to follow-up with her primary care physician and discuss these results tomorrow. Patient does not have right upper quadrant tenderness. Discharge - Discharge Clinical Impression: Pelvic and perineal pain Condition: Fair Disposition: HOME, SELF-CARE Prescriptions: Metronidazole [Flagyl 500 mg Tablet] 500 mg PO Q6H 2 Days #4 tablet Oxycodone HCl/Acetaminophen [Percocet 5-325 mg Tablet] 1 - 2 tab PO Q4H PRN #7 tablet PRN Reason: Referrals: BOO BARRETT MD [Primary Care Provider] - Follow up as needed
[2019-06-23 13:53] VITALS: BP 117/66
== END 2019-06-23 13:53 | disposition home or self-care (01) ==
LOC: ER 09:04
DX: R10.2 Pelvic and perineal pain (principal); R11.0 Nausea; R79.89 Other specified abnormal findings of blood chemistry; F17.200 Nicotine dependence, unspecified, uncomplicated; E11.9 Type 2 diabetes mellitus without complications; I10 Essential (primary) hypertension; J45.909 Unspecified asthma, uncomplicated; Z79.899 Other long term (current) drug therapy; Z79.82 Long term (current) use of aspirin
CPT/HCPCS: 99284; 96374; 36415; 83690; 85025; 80053; 81001; J2405

== ENCOUNTER 2020-05-14 05:38 | Emergency (ER) | payer SELFPAY ==
[2020-05-14] MEDS ORDERED: HYDROMORPHONE HCL INJ/PF 2 MG/ML AMPULE IV ONE (05:57)
[2020-05-14] MEDS ORDERED: NORMAL SALINE 1000 ML 1,000 ML IV ONE ×2 (05:59→07:11)
[2020-05-14] MEDS ORDERED: ONDANSETRON HCL INJ/PF 4 MG/2 ML SDV IV ONE (05:59)
--- NOTE | 2020-05-14 06:03 | ER Document Report ---
ED Medical Screen (RME) - General Chief Complaint: Abdominal Pain Stated Complaint: ABDOMINAL PAIN Primary Care Provider: BOO BARRETT MD [Primary Care Provider] - Follow up as needed Information source: Patient TRAVEL OUTSIDE OF THE [place] IN LAST 30 DAYS: No - HPI Notes: Patient is a 59 y/o female with a hx of CHF, COPD, and PID who presents with RLQ abdominal pain that began a week ago and worsened last night at 10PM. Patient reports diarrhea but denies nausea, vomiting, and fever. She still has her appendix, uterus and ovaries. She has not taken anything for pain relief. - Related Data Allergies/Adverse Reactions: lisinopril Adverse Reaction (Verified 06/23/19 09:31) Home Medications: metoprolol. glipizide. albuterol Past Medical History - Past Medical History Cardiac Medical History: Reports: Hx Congestive Heart Failure, Hx Hypertension Pulmonary Medical History: Reports: Hx Asthma, Hx COPD Endocrine Medical History: Reports: Hx Diabetes Mellitus Type 2 Renal/ Medical History: Denies: Hx Peritoneal Dialysis Musculoskeltal Medical History: Reports Hx Arthritis, Reports Hx Musculoskeletal Deformity, Reports Hx Musculoskeletal Trauma Traumatic Medical History: Reports: Hx Fractures Past Surgical History: Reports: Hx Cardiac Surgery, Hx Section, Hx Cholecystectomy, Hx Orthopedic Surgery, Other - Denies any discharge. Patient has recurrent PID without evidence of infect Physical Exam - Vital signs Vitals: Temp Pulse Resp BP Pulse Ox 98.6 F 103 H 19 179/100 H 95 05/14/20 05:41 05/14/20 05:41 05/14/20 05:41 05/14/20 05:41 05/14/20 05:41 - Abdominal Distension: No distension Bowel sounds: Normal Tenderness: Tender, McBurney's point, Guarding Course - Re-evaluation Re-evalutation: I have greeted and performed a rapid initial assessment of this patient. A comprehensive ED assessment and evaluation of the patient, analysis of test results and completion of medical decision making process will be conducted by an additional ED providers. - Vital Signs Vital signs: Temp Pulse Resp BP Pulse Ox 98.6 F 103 H 19 179/100 H 95 05/14/20 05:41 05/14/20 05:41 05/14/20 05:41 05/14/20 05:41 10/30/20 05:41 Doctor's Discharge - Discharge Referrals: BOO BARRETT MD [Primary Care Provider] - Follow up as needed
[2020-05-14 06:12] LABS: ABSOLUTE BASOPHILS # (AUTO) 0.1 10^3/uL (0.0-0.2); ABSOLUTE EOSINOPHILS # (AUTO) 0.2 10^3/uL (0.0-0.6); ABSOLUTE LYMPHOCYTES (AUTO) 1.7 10^3/uL (0.5-4.7); BASOPHILS % (AUTO) 1.2 % (0-2); EOSINOPHILS % (AUTO) 2.6 % (0-6); HEMATOCRIT 44.5 % (36.0-47.0); HEMOGLOBIN 15.3 g/dL (12.0-15.5); LYMPHOCYTES % (AUTO) 19.3 % (13-45); MEAN CORPUSCULAR HEMOGLOBIN 31.6 pg (27.0-33.4); MEAN CORPUSCULAR HGB CONC 34.3 g/dL (32.0-36.0); MEAN CORPUSCULAR VOLUME 92 fl (80-97); MONOCYTES % (AUTO) 10.6 % (3-13); PLATELET COUNT 162 10^3/uL (150-450); RED BLOOD COUNT 4.84 10^6/uL (3.72-5.28); RED CELL DISTRIBUTION WIDTH 13.8 % (11.5-14.0); SEGMENTED NEUTROPHILS % (AUTO) 66.3 % (42-78); TOTAL CELLS COUNTED % (AUTO) 100 %
[2020-05-14 06:22] LABS: ALBUMIN 3.8 g/dL (3.5-5.0); ALKALINE PHOSPHATASE 191 U/L (38-126); ANION GAP 10 (5-19); ASPARTATE AMINO TRANSFERASE 56 U/L (14-36); BILIRUBIN,DIRECT 0.2 mg/dL (0.0-0.4); BILIRUBIN,TOTAL 0.9 mg/dL (0.2-1.3); BLOOD UREA NITROGEN 6 mg/dL (7-20); CARBON DIOXIDE 22 mmol/L (22-30); CHLORIDE 105 mmol/L (98-107); GLUCOSE 268 mg/dL (75-110); POTASSIUM 3.9 mmol/L (3.6-5.0); TOTAL PROTEIN 7.1 g/dL (6.3-8.2)
[2020-05-14 07:13] VITALS: BP 147/86
--- NOTE | 2020-05-14 07:14 | RADIOLOGY REPORT (SQ) ---
CLINICAL HISTORY: RLQ abdominal pain. CREAT 0.53 COMPARISON: None. TECHNIQUE: CT ABDOMEN PELVIS WITH IV CONTRAST on 05/14/2020 5:58 AM CDT This exam was performed according to our departmental dose-optimization program, which includes automated exposure control, adjustment of the mA and/or kV according to patient size and/or use of iterative reconstruction technique. FINDINGS: Lower lungs are clear. Abdomen: Liver is diffusely cirrhotic in morphology. Hepatic ascites. There is trace. There is no biliary dilatation. Cholecystectomy was performed. The pancreas and spleen are normal in appearance. The adrenal glands and kidneys are unremarkable. Abdominal aorta is normal in course and caliber without aneurysm. There is no free air. There is no retroperitoneal adenopathy. Pelvis: There is no bowel obstruction. Urinary bladder is unremarkable. There is no free fluid. Uterus is normal in size. Appendix is normal. Skeleton: There are no acute osseous findings. No suspicious bony lesions. IMPRESSION: No acute process. Hepatic cirrhosis with trace ascites.
[2020-05-14 08:12] LABS: APPEARANCE,URINE CLEAR; BILIRUBIN,URINE NEGATIVE (NEGATIVE); COLOR,URINE YELLOW; GLUCOSE, URINE NEGATIVE (NEGATIVE); KETONES,URINE NEGATIVE (NEGATIVE); LEUKOCYTE ESTERASE,URINE NEGATIVE (NEGATIVE); NITRITE,URINE NEGATIVE (NEGATIVE); PROTEIN,URINE NEGATIVE (NEGATIVE); UROBILINOGEN,URINE NEGATIVE mg/dL (<2.0)
[2020-05-14 08:17] LABS: URINE SPECIFIC GRAVITY > 1.060
[2020-05-14] MEDS ORDERED: KETOROLAC TROMETHAMINE INJ/PF 30 MG/1 ML SDV IV ONE (08:24)
[2020-05-14 08:30] LABS: URINE AMPHETAMINES SCREEN NEGATIVE; URINE BARBITURATES SCREEN NEGATIVE; URINE BENZODIAZEPINES SCREEN NEGATIVE; URINE COCAINE SCREEN NEGATIVE; URINE MARIJUANA (THC) SCREEN NEGATIVE; URINE METHADONE SCREEN NEGATIVE; URINE PHENCYCLIDINE SCREEN NEGATIVE
--- NOTE | 2020-05-14 10:40 | RADIOLOGY REPORT (SQ) ---
EXAM DESCRIPTION: U/S NON-OB PELVIS TV W/O DOP IMAGES COMPLETED DATE/TIME: 05/14/2020 10:30 am REASON FOR STUDY: right sided pelvic pain COMPARISON: None. TECHNIQUE: Dynamic and static grayscale images acquired of the pelvis via transabdominal and transva ginal approach and recorded on PACS. Additional selected color Doppler and spectral images recorded. LIMITATIONS: None. FINDINGS: UTERUS: Contour normal. No mass. ENDOMETRIAL STRIPE: No focal or generalized thickening. No masses. CERVIX: No nabothian cysts. RIGHT OVARY AND DOPPLER: Ovary not visualized due to poor acoustic window. LEFT OVARY AND DOPPLER: Ovary not visualized due to poor acoustic window. FREE FLUID: Small amount of free fluid in the left adnexa. OTHER: No other significant finding. MEASUREMENTS: UTERUS: 3.2 x 4.0 x 6.0 cm. ENDOMETRIAL STRIPE: 5.5 mm. RIGHT OVARY: Not visualized. LEFT OVARY: Not visualized. IMPRESSION: OVARIES NOT VISUALIZED. SMALL AMOUNT OF FREE FLUID. NO OTHER SIGNIFICANT FINDINGS IN P MAYRLU. TECHNICAL DOCUMENTATION: JOB ID: [id number] [employer]- All Rights Reserved Rev-11/30 Reading location - IP/workstation name: [place]
[2020-05-14] MEDS ORDERED: OXYCODONE-ACETAMINOPHEN 5-325 MG TABLET PO ONE (10:54)
--- NOTE | 2020-05-14 11:06 | ER Document Report ---
Entered by SHARRI HERNANDEZ SCRIBE 05/14/20 0643 Acting as scribe for:BETTE VEGA MD ED GI/ - General Chief Complaint: Abdominal Pain Stated Complaint: ABDOMINAL PAIN Primary Care Provider: BOO BARRETT MD [Primary Care Provider] - Follow up as needed Mode of Arrival: Medic Information source: Patient Notes: This 59 year old female patient brought in by EMS from home presents to the ED today with complaints of intermittent RLQ abdominal pain for the past week, worse yesterday evening. Patient describes the pain as stabbing in nature. She reports a history of cholecystecomy, but denies any other abdominal surgeries. She notes diarrhea, but denies any nausea/vomiting, fever, or chills. TRAVEL OUTSIDE OF THE [place] IN LAST 30 DAYS: No - Related Data Allergies/Adverse Reactions: lisinopril Adverse Reaction (Verified 05/14/20 08:56) Home Medications: metoprolol. glipizide. albuterol Past Medical History - General Information source: Patient, [facility] Records - Social History Smoking Status: Current Every Day Smoker Smoking Education Provided: No Family History: Reviewed & Not Pertinent, Other - She was not raised with her biological family and does not know anything about them. Patient has suicidal ideation: No Patient has homicidal ideation: No - Past Medical History Cardiac Medical History: Reports: Hx Congestive Heart Failure, Hx Hypertension Pulmonary Medical History: Reports: Hx Asthma, Hx COPD Endocrine Medical History: Reports: Hx Diabetes Mellitus Type 2 Musculoskeletal Medical History: Reports Hx Arthritis, Reports Hx Musculoskeletal Deformity, Reports Hx Musculoskeletal Trauma Traumatic Medical History: Reports: Hx Fractures Past Surgical History: Reports: Hx Cardiac Surgery, Hx Section, Hx Cholecystectomy, Hx Orthopedic Surgery, Other - Denies any discharge. 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 denies: Chills, Fever EENT: No symptoms reported Cardiovascular: No symptoms reported Respiratory: No symptoms reported Gastrointestinal: See HPI, Abdominal pain, Diarrhea. denies: Nausea, Vomiting Genitourinary: No symptoms reported Female Genitourinary: No symptoms reported Musculoskeletal: No symptoms reported Skin: No symptoms reported Hematologic/Lymphatic: No symptoms reported Neurological/Psychological: No symptoms reported -: Yes All other systems reviewed and negative Physical Exam - Vital signs Vitals: Temp Pulse Resp BP Pulse Ox 98.6 F 103 H 19 179/100 H 95 05/14/20 05:41 05/14/20 05:41 05/14/20 05:41 05/14/20 05:41 05/14/20 05:41 - General General appearance: Alert - HEENT Head: Normocephalic, Atraumatic Eyes: Normal Pupils: PERRL - Respiratory Respiratory status: No respiratory distress Chest status: Nontender Breath sounds: Normal Chest palpation: Normal - Cardiovascular Rhythm: Regular Heart sounds: Normal auscultation Murmur: No Friction rub: No Gallop: None auscultated - Abdominal Inspection: Normal Distension: No distension Tenderness: Tender - RLQ tenderness to palpation, Guarding, Other - Abdomen soft Organomegaly: No organomegaly. No: Mass - Back Back: Normal, Nontender - Extremities General upper extremity: Normal inspection General lower extremity: Normal inspection. No: Edema - Neurological Neuro grossly intact: Yes Orientation: AAOx4 Ioana Coma Scale Eye Opening: Spontaneous Ioana Coma Scale Verbal: Oriented Ioana Coma Scale Motor: Obeys Commands Hurley Coma Scale Total: 15 - Psychological Associated symptoms: Normal affect, Normal mood - Skin Skin Temperature: Warm Skin Moisture: Dry Skin Color: Normal Course - Re-evaluation Re-evalutation: 05/14/20 10:54 Patient continues to complain of pain in her right lower quadrant pelvic region. Patient does not have a surgical abdomen. Review of CT scan shows no acute process normal appendix. Pelvic ultrasound shows no acute process. Patient's laboratories essentially within normal limits. Urinalysis does not show any cells or any signs of infection either. - Vital Signs Vital signs: Temp Pulse Resp BP Pulse Ox 98.6 F 103 H 19 147/86 H 97 05/14/20 05:41 05/14/20 05:41 05/14/20 08:00 05/14/20 07:01 05/14/20 08:00 05/14/20 10:55 Vital signs are stable. - Laboratory Result Diagrams: 05/14/20 05:49 05/14/20 05:49 Laboratory results interpreted by me: 05/14/20 05:49 BUN 6 L Glucose 268 H AST 56 H Alkaline Phosphatase 191 H 05/14/20 10:55 Patient has a chronic elevation of alkaline phosphatase. Patient's AST is 56 and glucose of 268. Patient is a known diabetic. - Diagnostic Test Radiology reviewed: Image reviewed, Reports reviewed Radiology results interpreted by me: 05/14/20 08:10 Abdomen/Pelvis CT 05/14/20 05:58 IMPRESSION: No acute process. Hepatic cirrhosis with trace ascites. 05/14/20 10:41 Abdomen/Pelvis CT 05/14/20 05:58 IMPRESSION: No acute process. Hepatic cirrhosis with trace ascites. Transvaginal US 05/14/20 08:30 IMPRESSION: OVARIES NOT VISUALIZED. SMALL AMOUNT OF FREE FLUID. NO OTHER SIGNIFICANT FINDINGS IN PELVIS. 05/14/20 10:[address] pelvis [address] disclose hepatic cirrhosis with trace ascites. Of note the appendix appears normal on the CT scan. Also patient ultrasound transvaginal ultrasound shows ovaries nonvisualized with a small amount of free fluid no other acute findings in the pelvis. Discharge - Discharge Clinical Impression: Combined abdominal and pelvic pain, Diarrhea Condition: Stable Disposition: HOME, SELF-CARE Instructions: Abdominal Pain ([facility]), Antinausea Medication ([facility]) Additional Instructions: Abdominal Pain There are many causes of abdominal pain. Pain can mean a serious problem requiring surgery (such as appendicitis). It can also be an innocent problem that goes away on its own (such as a viral infection). Often, time must pass to determine the cause of pain. The physician does not feel that hospitalization is necessary, at present. Things may change within the next 24 hours. Call the doctor or come back for re- examination if any problems occur, such as: (1) Pain that becomes more severe, steady, or becomes concentrated in one specific area. Also, pain that is more severe with movement or coughing. (2) Vomiting that persists or becomes more frequent. (3) Blood in the vomitus, urine, or bowel movements. Blood in the stool may have a tarry or black appearance. (4) Shaking chills or fever greater than 100 degrees F. (5) The abdomen becomes more distended or swollen. (6) Bowel movements cease. (7) Failure to improve as expected. Diarrhea Diarrhea means frequent, watery stools. There are many causes. Any problem that keeps the intestinal tract from absorbing water from the stool can lead to diarrhea. A sudden new diarrhea problem is usually caused by a virus, food sen sitivity, toxic bacteria, or drugs. In this case, we expect the problem to go away soon. Testing is done only if you seem seriously ill from the diarrhea. If you have chronic diarrhea, or diarrhea that keeps coming back, we need to find out why. Chronic diarrhea can be due to inflammation of the bowels such as Crohn's disease or ulcerative colitis, food sensitivity such as intolerance to lactose or wheat protein, irritable bowel syndrome, and other problems. If your diarrhea is a significant problem but it's not clear why you have it, we'll refer you to a specialist for further testing. During an episode of diarrhea, drink small amounts (two to six ounces) of clear liquids (soft drinks, sport drinks, herb teas, broth, etc). Take fluids frequently to prevent dehydration. It's usually not a problem to take mild anti- diarrhea medication such as Kaopectate or Pepto-Bismol. As the diarrhea eases, advance to small amounts of bland food (mashed potato, toast) for 24 hours. Call the physician if blood appears in your vomit or stool, if vomiting lasts longer than 24 hours, if the abdominal pain worsens or becomes localized to one area, if you develop high fever, or if you become lightheaded and weak. Prescriptions: Metronidazole [Flagyl 500 mg Tablet] 500 mg PO BID 5 Days #10 tablet Oxycodone HCl/Acetaminophen [Percocet 5-325 mg Tablet] 1 tab PO Q6H PRN 2 Days #8 tab PRN Reason: pain Ondansetron [Zofran Odt 4 mg Tablet] 1 - 2 tab PO Q4H PRN #15 tab.rapdis PRN Reason: For Nausea/Vomiting Referrals: BOO BARRETT MD [Primary Care Provider] - Follow up as needed I personally performed the services described in the documentation, reviewed and edited the documentation which was dictated to the scribe in my presence, and it accurately records my words and actions.
== END 2020-05-14 11:37 | disposition home or self-care (01) ==
LOC: ER 05:38
DX: R10.31 Right lower quadrant pain (principal); R10.2 Pelvic and perineal pain; R19.7 Diarrhea, unspecified; F17.200 Nicotine dependence, unspecified, uncomplicated; I11.0 Hypertensive heart disease with heart failure; I50.9 Heart failure, unspecified; E11.9 Type 2 diabetes mellitus without complications; Z90.49 Acquired absence of other specified parts of digestive tract
CPT/HCPCS: 99285; 96361; 96374; 96375; 36415; 82962; 85025; 80053; 81001; 80307; 76830; 74177; J1885; J1170; J2405; J7030